=== PATIENT | female | born 1940 | race Caucasian/White ===

== ENCOUNTER 2018-01-16 07:47 | Day surgery (SDC) | payer OTHER, BC ==
[2018-01-16 08:35] VITALS: BMI 33.0
[2018-01-16 09:40] VITALS: TEMP 97.7
[2018-01-16 11:14] VITALS: BP 119/67; PULSE 59
--- NOTE | 2018-01-17 18:00 | PATH ---
Surgical Pathology Report Patient Name: REJI MACIAS [facility]. Rec. #: [id number] /Age/Gender: 1940 (Age: 77) / F Account: [id number] Location: U-ENDOSCOPY Taken: 01/16/2018 Received: 01/16/2018 Reported: 01/17/2018 Physicians: Uli Bass M.D. Specimen(s) Received A: BX PROXIMAL TRANSVERSE COLON POLYP B: BX CECUM POLYP Clinical History Personal history of colon polyp, screening, change in bowel habits Postoperative diagnosis: Colon polyps, diverticulosis Final Diagnosis A. PROXIMAL TRANSVERSE COLON, POLYP, POLYPECTOMY: TUBULAR ADENOMA. B. CECUM, POLYP, POLYPECTOMY: TUBULAR ADENOMA. Electronically Signed Roxana Hale M.D. Gross Description A. Received in formalin, labeled "biopsy polyp proximal transverse" are 2 murry, irregular portions of soft tissue measuring 0.2 and 0.4 cm. in greatest dimension. The specimens are submitted in toto in one cassette. B. Received in formalin, labeled "polyp from cecum" are 2 murry, irregular portions of soft tissue measuring 0.2 and 0.4 cm. in greatest dimension. The specimens are submitted in toto in one cassette. 01/16/2018 saudi01/16/2018
== END 2018-01-16 10:44 | disposition home or self-care (01) ==
LOC: JASU-ENDO 07:47
PROVIDERS: ATTEND Internal Medicine Gastroenterology
PROC: 0DBL8ZX Excision of Transverse Colon, Via Natural or Artificial Opening Endoscopic, Diagnostic (ICD-10-PCS; 2018-01-16)
PROC: 0DBH8ZX Excision of Cecum, Via Natural or Artificial Opening Endoscopic, Diagnostic (ICD-10-PCS; principal; 2018-01-16 08:00)
DX: Z12.11 Encounter for screening for malignant neoplasm of colon (principal); Z86.010 Personal history of colon polyps; Z80.0 Family history of malignant neoplasm of digestive organs; D12.0 Benign neoplasm of cecum; K57.30 Diverticulosis of large intestine without perforation or abscess without bleeding; K64.8 Other hemorrhoids; K55.20 Angiodysplasia of colon without hemorrhage; K63.5 Polyp of colon; D12.3 Benign neoplasm of transverse colon
CPT/HCPCS: 88305-TC